=== PATIENT | male | born 1990 | race Caucasian/White ===

== ENCOUNTER 2016-12-02 05:51 | Emergency (ER) | payer SELFPAY ==
[2016-12-02 06:00] VITALS: BP 116/74; PULSE 70; TEMP 98.4; BMI 39.1
--- NOTE | 2016-12-02 06:06 | PDOC ---
History of Present Illness - General Chief Complaint: Lightheaded Stated Complaint: DIZZY Time Seen by Provider: 12/02/16 06:00 History Source: Patient Exam Limitations: No Limitations - History of Present Illness Initial Comments: 12/02/16 06:04 This is an obese 26-year-old male who comes in with his father for evaluation. Patient said that he works the overnight shift and on his way home this morning that he was driving and he had an episode that lasted several minutes where he felt dizzy. Patient denied any palpitations, nausea, chest pain, shortness of breath or any other associated symptoms. Patient said symptoms resolved spontaneously and he denies any symptoms now. Patient denies any history of similar symptoms in the past. Patient said he is otherwise healthy, takes no medications and denies any headache, blurry vision or neurological complaints. Patient said the dizziness consisted of feeling lightheaded. PAST MEDICAL HISTORY: no significant history PAST SURGICAL HISTORY: no significant history FAMILY HISTORY: no pertinant history SOCIAL HISTORY: Pt lives with family and is employed. MEDICATIONS: reviewed ALLERGIES: As per nursing notes Review of Systems General: No fevers or chills, no weakness, no weight loss HEENT: No change in vision. No sore throat,. No ear pain CardioVascular: No chest pain or shortness of breath Respiratory:No cough, or wheezing. Gastrointestinal: no nausea, vomitting, diarrhea or constipation, No rectal bleeding Genitourinary: No dysuria, hematuria, or frequency Musculoskeletal: No joint or muscle pain or swelling Neurologic: No headache, vertigo, dizziness or loss of consciousness Psychiatric: nor depression Skin: No rashes or easy bruising Endocrine: no increased thirst or abnormal weight change Allergic: no skin or latex allergy All other systems reviewed and normal Exam: General: Well-nourished well-developed individual, no acute distress HEENT: Throat: Normal, tonsils normal, no erythema or exudate Neck: Supple, no meningeal signs, no lymphadenopathy Eyes::Pupils equal reactive and round, extraocular motion intact Chest: Nontender to palpation Cardiac: S1-S2 normal, regular rate and rhythm, no murmurs rubs or gallops Respiratory: Lungs clear to auscultation bilateral Abdomen: Soft, nondistended, normal bowel sounds, nontender to palpation diffusely Extremities: Warm, dry, no cyanosis, clubbing, or edema Skin: No rashes Neuro: Alert and oriented x3, nonfocal exam, grossly intact, normal gait Psych: Normal mood and affect EKG shows normal sinus rhythm, normal intervals no acute ST-T wave changes EKG is normal. Assessment and plan this is a 26-year-old male who works E overnight shift denies way home this morning had a brief episode of where he felt lightheaded. Patient symptoms resolved spontaneously. Patient is otherwise healthy. Patient had a cardiogram was normal. Patient otherwise was told he needs to follow-up with his primary care doctor and make sure he stays well-hydrated at work. Patient discharged home. Past History - Past Medical History Allergies/Adverse Reactions: Allergies Allergy/AdvReac Type Severity Reaction Status Date / Time No Known Allergies Allergy Unverified 07/05/15 23:19 Home Medications: Ambulatory Orders NK [No Known Home Medication] 12/02/16 Asthma: Yes - Immunization History Immunization Up to Date: Yes - Psycho/Social/Smoking Cessation Hx Anxiety: No Suicidal Ideation: No Smoking History: Unknown if ever smoked Have you smoked in the past 12 months: No Number of Cigarettes Smoked Daily: 0 Information on smoking cessation initiated: No Hx Alcohol Use: No Drug/Substance Use Hx: No Substance Use Type: None *Physical Exam - Vital Signs Last Vital Signs Temp Pulse Resp BP Pulse Ox 98.4 F 70 14 116/74 96 12/02/16 05:57 12/02/16 05:57 12/02/16 05:57 12/02/16 05:57 12/02/16 05:57 *DC/Admit/Observation/Transfer Diagnosis at time of Disposition: Dizziness, nonspecific - Discharge Dispostion Disposition: HOME Condition at time of disposition: Good Admit: No - Patient Instructions Additional Instructions: Call your doctor to make an appointment for next week for a physical and follow- up with your doctor next week. Make sure you stay well hydrated when you works the overnight shift. Return to the emergency department immediately with ANY new, persistent or worsening symptoms. Continue any medications as previously prescribed by your physician. . Please make sure your doctor reviews the results of your emergency evaluation. Thank you for coming to the Emergency Department today for your care. It was a pleasure to see you today. Please note that your evaluation is INCOMPLETE until you follow-up with your doctor.
--- NOTE | 2016-12-02 08:48 | EKG ---
Test Reason : Blood Pressure : / mmHG Vent. Rate : 061 BPM Atrial Rate : 061 BPM P-R Int : 138 ms QRS Dur : 094 ms QT Int : 386 ms P-R-T Axes : 041 071 032 degrees QTc Int : 388 ms SINUS RHYTHM WITH SINUS ARRHYTHMIA NO PREVIOUS ECGS AVAILABLE Confirmed by GAL WONG MD ([id number]) on 12/02/2016 8:47:58 AM Referred By: MD CAMPBELL Confirmed By:GAL WONG MD
== END 2016-12-02 06:16 | disposition home or self-care (01) ==
LOC: FER 05:51
DX: R42 Dizziness and giddiness (principal); J45.909 Unspecified asthma, uncomplicated
CPT/HCPCS: 93005; 99282-25

== ENCOUNTER 2018-04-27 23:39 | Emergency (ER) | payer OTHER ==
--- NOTE | 2018-04-27 23:44 | PDOC ---
History of Present Illness - General Chief Complaint: Cold Symptoms Stated Complaint: VIRAL SYMPTOMS Time Seen by Provider: 04/27/18 23:44 History Source: Patient Exam Limitations: No Limitations - History of Present Illness Initial Comments: 04/27/18 23:49 Assessment and plan: This is a 28-year-old male who comes in complaining of headache, body ache, fever, chills, sore throat and generalized malaise. Patient did not get his influenza shot this year. Patient otherwise denies any nausea, vomiting, diarrhea. Allergies: None Past Medical History: none Social history: Lives with family. No smoking. No alcohol. No illicit drugs. Surgical history: None General: No fevers or chills, no weakness, no weight loss HEENT: No change in vision. No sore throat,. No ear pain CardioVascular: no chest discomfort. No shortness of breath Respiratory:No cough, or wheezing. Gastrointestinal: no nausea, vomiting, diarrhea or constipation, No rectal bleeding Genitourinary: No dysuria, hematuria, or frequency Musculoskeletal: No joint or muscle pain or swelling Neurologic: No headache, vertigo, dizziness or loss of consciousness Psychiatric: nor depression Skin: No rashes or easy bruising Endocrine: no increased thirst or abnormal weight change Allergic: no skin or latex allergy All other systems reviewed and normal Exam: General: Well-nourished well-developed individual, no acute distress HEENT: Throat: Normal, tonsils normal, there is some mild erythema of the posterior oropharynx Neck: Supple, no meningeal signs, no lymphadenopathy Eyes::Pupils equal reactive and round, extraocular motion intact Chest: Nontender to palpation Cardiac: S1-S2 normal, regular rate and rhythm, no murmurs rubs or gallops Respiratory: Lungs clear to auscultation bilateral Abdomen: Soft, nondistended, normal bowel sounds, there is no tenderness on palpation diffusely Extremities: Warm, dry, no cyanosis, clubbing, or edema Skin: No rashes Neuro: Alert and oriented x3, CN II - XII intact, nonfocal exam with normal strength, normal sensation, normal reflexes, normal gait, Psych: Normal mood and affect Assessment plan: This is a 8-year-old male with influenza-like symptoms. Times one day. Patient given Tamiflu here in the emergency room and a prescription was sent to his pharmacy to continue the Tamiflu. Patient discharged home will follow-up with his primary care doctor as needed Past History - Past Medical History Allergies/Adverse Reactions: Allergies Allergy/AdvReac Type Severity Reaction Status Date / Time No Known Allergies Allergy Unverified 07/05/15 23:19 Home Medications: Ambulatory Orders Acetaminophen [Extra Strength Non-Aspirin] 1,000 mg PO ONCE 04/27/18 Oseltamivir Phosphate [Tamiflu] 75 mg PO BID #10 capsule 04/27/18 Asthma: Yes - Immunization History Immunization Up to Date: Yes - Suicide/Smoking/Psychosocial Hx Smoking History: Unknown if ever smoked Have you smoked in the past 12 months: No Number of Cigarettes Smoked Daily: 0 Hx Alcohol Use: No Drug/Substance Use Hx: No Substance Use Type: None *DC/Admit/Observation/Transfer Diagnosis at time of Disposition: Influenza - Discharge Dispostion Disposition: HOME Condition at time of disposition: Stable Decision to Admit order: No - Referrals - Patient Instructions Additional Instructions: I gave your first dose of Tamiflu, get the prescription filled tomorrow morning and continue taking it twice a day for 5 days. Alternate Tylenol with Motrin every 3-4 hours as needed for headache, body aches , fevers. Return to the emergency department immediately with ANY new, persistent or worsening symptoms. Continue any medications as previously prescribed by your physician. You should follow up with your primary doctor as soon as possible regarding today's emergency department visit. . Please make sure your doctor reviews the results of your emergency evaluation. Thank you for coming to the Emergency Department today for your care. It was a pleasure to see you today. Please note that your evaluation is INCOMPLETE until you follow-up with your doctor. - Post Discharge Activity
[2018-04-27 23:47] VITALS: BP 120/75; PULSE 116; TEMP 99.9; BMI 34.0
[2018-04-27] MEDS ORDERED: ACETAMINOPHEN 500 MG TABLET (FP) PO ONE (23:50)
[2018-04-27] MEDS ORDERED: OSELTAMIVIR PHOSPHATE 75 MG CAPSULE PO ONE (23:51)
[2018-04-27] MEDS ORDERED: OSELTAMIVIR PHOSPHATE 75 MG CAPSULE ONE (23:53)
[2018-04-27] MEDS ORDERED: IBUPROFEN 600 MG TABLET (FP) PO ONE ×2 (23:53)
== END 2018-04-28 00:04 | disposition home or self-care (01) ==
LOC: FER 23:39
DX: J11.1 Influenza due to unidentified influenza virus with other respiratory manifestations (principal)
CPT/HCPCS: 99281-25

== ENCOUNTER 2021-01-16 20:45 | Emergency (ER) | payer OTHER ==
[2021-01-16] MEDS ORDERED: ACETAMINOPHEN 500 MG TABLET (FP) PO ONE (21:15)
[2021-01-16] MEDS ORDERED: ACETAMINOPHEN 500 MG TABLET (FP) ONE (21:21)
[2021-01-16 21:36] VITALS: BP 129/80; PULSE 60; TEMP 98.3; BMI 36.9
== END 2021-01-16 23:32 | disposition home or self-care (01) ==
LOC: FER 20:45
DX: S16.1XXA Strain of muscle, fascia and tendon at neck level, initial encounter (principal); S29.012A Strain of muscle and tendon of back wall of thorax, initial encounter; S39.012A Strain of muscle, fascia and tendon of lower back, initial encounter; S43.402A Unspecified sprain of left shoulder joint, initial encounter; V49.9XXA Car occupant (driver) (passenger) injured in unspecified traffic accident, initial encounter
CPT/HCPCS: 70450-TC; 72070-TC-FY; 72100-TC-FY; 72125-TC; 73030-TC-LT-FY; 73070-TC-LT-FY; 73110-TC-LT-FY; 99285-25